=== PATIENT | female | born 1940 | race Caucasian/White ===

== ENCOUNTER 2023-02-22 08:11 | Emergency (ER) | payer OTHER ==
[~2023-02-22] VITALS: Ht 157.5 cm; Wt 85.7 kg
[2023-02-22 08:18] VITALS: BP 151/76
[2023-02-22] MEDS ORDERED: KETOROLAC 30MG VIAL (30MG/ML) IM ONE (09:30)
[2023-02-22] MEDS ORDERED: PREDNISONE 20 MG TABLET PO ONE (09:30)
[2023-02-22] MEDS ORDERED: LIDOCAINE 5% TOPICAL PATCH TP ONE (09:30)
[2023-02-22] MEDS ORDERED: TRAM50TA4 PO (09:31)
[2023-02-22] MEDS ORDERED: LIDO1ADH82 TP (09:31)
[2023-02-22] MEDS ORDERED: PRED20TA3 PO (09:31)
== END 2023-02-22 10:24 | disposition home or self-care (01) ==
LOC: EDH 08:11
DX: M54.12 Radiculopathy, cervical region (principal); I10 Essential (primary) hypertension; E11.9 Type 2 diabetes mellitus without complications; E78.00 Pure hypercholesterolemia, unspecified; M19.90 Unspecified osteoarthritis, unspecified site; Z79.899 Other long term (current) drug therapy; Z90.49 Acquired absence of other specified parts of digestive tract; Z98.890 Other specified postprocedural states; Z88.1 Allergy status to other antibiotic agents
CPT/HCPCS: 99283; 96372; J1885